=== PATIENT | female | born 1955 | race American Indian/Alaskan Native ===

== ENCOUNTER 2023-04-28 11:48 | Emergency (ER) | payer OTHER ==
[~2023-04-28] VITALS: Ht 162.6 cm; Wt 55.8 kg
[2023-04-28 11:52] VITALS: BP 118/70
--- NOTE | 2023-04-28 11:58 | NUR ---
pt ambulatory to bed 09.
[2023-04-28] MEDS ORDERED: PRED20TA5 PO (12:34)
[2023-04-28] MEDS ORDERED: KEN.1C TP (12:34)
--- NOTE | 2023-04-28 12:45 | NUR ---
Patient discharged with v/s stable. Written and verbal after care instructions given and explained. Patient verbalized understanding. Ambulatory with steady gait. All questions addressed prior to discharge. Advised to follow up with PMD.
== END 2023-04-28 12:42 | disposition home or self-care (01) ==
LOC: MED 11:48
DX: R21 Rash and other nonspecific skin eruption (principal); K21.9 Gastro-esophageal reflux disease without esophagitis; Z79.899 Other long term (current) drug therapy
CPT/HCPCS: 99281

== ENCOUNTER 2023-07-25 08:12 | Emergency (ER) | payer OTHER ==
[~2023-07-25] VITALS: Ht 162.6 cm; Wt 57.6 kg
[~2023-07-25 08:12] MED LIST: KEN.1C TP; PRED20TA5 PO
[2023-07-25 08:40] VITALS: BP 132/94; PULSE 73; RESP 17; TEMP 98; O2SAT 94
[2023-07-25] MEDS ORDERED: KETOROLAC 30 MG/ML VIAL IM ONE (09:00)
[2023-07-25] MEDS ORDERED: CYCL-711 PO (09:04)
== END 2023-07-25 09:22 | disposition home or self-care (01) ==
LOC: MED 08:12
DX: M54.50 Low back pain, unspecified (principal); K21.9 Gastro-esophageal reflux disease without esophagitis; Z79.899 Other long term (current) drug therapy
CPT/HCPCS: 96372; 99283; J1885

== ENCOUNTER 2023-10-21 06:26 | Emergency (ER) | payer OTHER, MEDICARE ==
[~2023-10-21] VITALS: Ht 162.6 cm; Wt 54.4 kg
[~2023-10-21 06:26] MED LIST changes: +CYCL-711 PO
[2023-10-21 06:31] VITALS: BP 115/55; PULSE 105; RESP 20; TEMP 97.8; O2SAT 97
[2023-10-21] MEDS ORDERED: NACL 0.9% 1,000 ML IV ONE (08:10)
[2023-10-21] MEDS ORDERED: ALBUTEROL SULFATE/IPRATROPIU 3 ML SOL IH ONE (08:10)
[2023-10-21 08:14] VITALS: PULSE 82; RESP 16; O2SAT 96; O2SAT 98
[2023-10-21 08:46] LABS: BASOPHILS % (AUTO) 0.6 % (0.0-2.0); EOSINOPHILS # (AUTO) 0.2 K/uL (0-0.4); EOSINOPHILS % (AUTO) 4.1 % (0.0-4.0); HEMATOCRIT 36.5 % (36-48); HEMOGLOBIN 12.1 g/dL (12.0-16.0); LYMPHOCYTES # (AUTO) 0.8 K/uL (2.5-16.5); LYMPHOCYTES % (AUTO) 13.1 % (20.5-51.1); MEAN CORPUSCULAR HEMOGLOBIN 31 pg (27-31); MEAN CORPUSCULAR HGB CONC 33 g/dL (33-37); MEAN CORPUSCULAR VOLUME 93.9 fL (80-94); MONOCYTES # (AUTO) 0.7 K/uL (0.8-1.0); MONOCYTES % (AUTO) 11.6 % (1.7-9.3); NEUTROPHILS # (AUTO) 4.2 K/uL (1.8-7.7); NEUTROPHILS % (AUTO) 70.6 % (42.2-75.2); PLATELET COUNT (AUTO) 191 K/uL (140-450); RED BLOOD CELL COUNT(AUTO) 3.89 MIL/uL (4.20-5.40); RED CELL DISTRIBUTION WIDTH 14.4 % (11.6-13.7); WHITE BLOOD COUNT (AUTO) 5.9 K/uL (4.8-10.8)
[2023-10-21 09:39] LABS: ALBUMIN 3.4 g/dL (3.4-5.0); ANION GAP 10.5 (8-16); CALCIUM 8.6 mg/dL (8.5-10.1); CARBON DIOXIDE 26.9 mmol/L (21-32); CREATININE 0.6 mg/dL (0.6-1.3); POTASSIUM 4.4 mmol/L (3.5-5.1); TOTAL BILIRUBIN 0.3 mg/dL (0.0-1.0)
[2023-10-21] MEDS ORDERED: BENZ200C4 PO (12:32)
[2023-10-21] MEDS ORDERED: DOXY-690 PO (12:32)
[2023-10-21 12:47] VITALS: BP 115/56; PULSE 72; RESP 18; TEMP 98; O2SAT 99
== END 2023-10-21 12:47 | disposition home or self-care (01) ==
LOC: MED 06:26
DX: J18.9 Pneumonia, unspecified organism (principal); K21.9 Gastro-esophageal reflux disease without esophagitis; Z79.899 Other long term (current) drug therapy
CPT/HCPCS: 36415; 71045; 80053; 83880; 84484; 85025; 93005; 94640; 96360; 96361; 99285; Q0092